=== PATIENT | female | born 1990 | race African-American/Black ===

== ENCOUNTER 2025-08-11 20:00 | Emergency (ER) | payer OTHER, SELFPAY ==
[2025-08-11 20:07] VITALS: BP 133/77
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
[2025-08-11 20:14] VITALS: BMI 26.8
--- NOTE | 2025-08-11 22:24 | EDRN ---
this RN attempted to obtain VS and patient began yelling and instructing me to leave her alone. respirations unlabored, patient does not appear to be in distress.
[2025-08-11 23:53] VITALS: BP 133/93
[2025-08-12 00:44] LABS: HCG, Serum Qualitative Screen Negative
[2025-08-12 00:49] LABS: ALT (SGPT) 16 U/L (0-35); AST (SGOT) 25 U/L (14-36); Albumin 4.1 g/dl (3.5-5.0); Alkaline Phosphatase 50 U/L (38-126); Blood Urea Nitrogen 17 mg/dl (7-17); Calcium 9.5 mg/dl (8.4-10.2); Carbon Dioxide 24 mmol/L (22-30); Chloride 108 mmol/L (98-107); Estimated Creatinine Clearance 111 ml/min; Glucose 88 mg/dl (70-99); Potassium 3.9 mmol/L (3.5-5.1); Sodium 138 mmol/L (135-145); Total Protein 7.1 g/dl (6.3-8.2); eGFR > 60.00
[2025-08-12] MEDS: ISENTRESS 400 MG PO (01:54)
[2025-08-12] MEDS: VIBRAMYCIN 100 MG PO (01:54)
[2025-08-12] MEDS: ZOFRAN ODT (ORALLY DISINTEGRATING) 4 MG PO (01:54)
[2025-08-12] MEDS: TRUVADA TABLET 1 TABLET PO (01:54)
[2025-08-12] MEDS: FLAGYL 500 MG PO (01:54)
[2025-08-12] MEDS: PLAN B ONE-STEP, NEXT CHOICE 1 TABLET PO (01:55)
[2025-08-12] MEDS: ROCEPHIN 1.4286 MG IM (01:59)
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
== END 2025-08-12 02:31 ==
LOC: EMR 20:00
PROVIDERS: EMERGENCY PHYSICIAN Emergency Medicine
DX: T74.21XA Adult sexual abuse, confirmed, initial encounter (principal); Y92.9 Unspecified place or not applicable; F41.9 Anxiety disorder, unspecified
CPT/HCPCS: 99285; 96372; 80053; 84703